=== PATIENT | male | born 1970 | race Caucasian/White ===

== ENCOUNTER 2016-08-05 14:40 | Emergency (ER) | payer OTHER ==
[~2016-08-05] VITALS: Ht 172.7 cm; Wt 88.0 kg
[2016-08-05 14:42] VITALS: BP 130/65; PULSE 90; RESP 18; TEMP 98.9; O2SAT 100
[2016-08-05] MEDS ORDERED: MONT10TA4 PO (14:58)
[2016-08-05] MEDS ORDERED: PARO40TA2 PO (14:58)
[2016-08-05] MEDS ORDERED: PARO30TA2 PO (14:58)
[2016-08-05] MEDS ORDERED: XOPEAER4 INH (14:58)
[2016-08-05] MEDS ORDERED: LEVO.075 PO (14:59)
[2016-08-05] MEDS ORDERED: ATOR40TA16 PO (14:59)
--- NOTE | 2016-08-05 15:01 | PD ---
HPI Chief Complaint: Psychiatric Symptoms Time Seen by Provider: 14:59 Travel History International Travel<30 days: No Contact w/Intl Traveler<30days: No Traveled to known affect area: No History of Present Illness HPI Patient comes in requesting psychiatric evaluation for worsening depression. Patient states he just got out of a correctional [place] on the 14th of last month has been having worsening of depression. Patient reports he's been taking his Paxil however still continues to feel his depression is getting worse. Patient denies any suicidal or homicidal ideations. Denies any medical concerns. Denies any chest pain, shortness of breath, nausea or vomiting, abdominal pain, or fevers. PFSH Past Medical History Bipolar Disorder: Yes Depression: Yes Triglycerides - High: Yes Past Surgical History Surgical History: No Previous Surgery Social History Alcohol Use: Yes (4 beers daliy ) Tobacco Use: Yes (1/2 pack a day ) Substance Use: Yes (TONIA ) Allergies-Medications (Allergen,Severity, Reaction): Coded Allergies: No Known Allergies (Unverified , 08/05/16) Reported Meds & Prescriptions Reported Meds & Active Scripts Active Reported Atorvastatin (Atorvastatin Calcium) 40 Mg Tab 40 Mg PO HS Synthroid (Levothyroxine Sodium) 75 Mcg Tab 75 Mcg PO DAILY Montelukast (Montelukast Sodium) 10 Mg Tab 10 Mg PO HS Paroxetine (Paroxetine HCl) 30 Mg Tab 30 Mg PO DAILY Paroxetine (Paroxetine HCl) 40 Mg Tab 40 Mg PO DAILY Xopenex Hfa 15 GM Inh (Levalbuterol 15 GM Inh) 45 Mcg/Act Aer 45 Mcg INH BID Shake well before using. (1 puff = 45 mcg) Review of Systems Except as stated in HPI: all other systems reviewed are Neg Physical Exam Narrative GENERAL: Well-developed, overly nourished, in no acute distress, and non-ill appearing. SKIN: Focused skin assessment warm and dry. HEAD: Atraumatic. Normocephalic. EYES: Pupils equal and round. EOMI. No scleral icterus. No injection or drainage. ENT: No nasal bleeding or discharge. Mucous membranes pink and moist. NECK: Trachea midline. Supple. No nuclear rigidity. CARDIOVASCULAR: Regular rate and rhythm. No murmur appreciated. RESPIRATORY: No accessory muscle use. No respiratory distress. Clear to auscultation. Breath sounds equal bilaterally. MUSCULOSKELETAL: No obvious deformities. No clubbing. No cyanosis. No edema. Full range of motion. NEUROLOGICAL: Awake and alert. No obvious cranial nerve deficits. Motor grossly within normal limits. Normal speech. PSYCHIATRIC: Appropriate mood and affect; insight and judgment normal. Data Data Last Documented VS Vital Signs Date Time Temp Pulse Resp B/P Pulse Ox O2 Delivery O2 Flow Rate FiO2 08/05/16 14:50 18 08/05/16 14:42 98.9 90 130/65 100 Room Air Orders Complete Blood Count With Diff (08/05/16 14:59) Comprehensive Metabolic Panel (08/05/16 14:59) Psych Screen (08/05/16 14:59) Drug Screen, Random Urine (08/05/16 14:59) Alcohol (Ethanol) (08/05/16 14:59) Salicylates (Aspirin) (08/05/16 14:59) Tylenol (Acetaminophen) (08/05/16 14:59) Labs Laboratory Tests Test 08/05/16 08/05/16 15:00 15:20 Urine Opiates Screen NEG Urine Barbiturates Screen NEG Urine Amphetamines Screen NEG Urine Benzodiazepines Screen NEG Urine Cocaine Screen POS Urine Cannabinoids Screen NEG White Blood Count 7.4 TH/MM3 Red Blood Count 4.92 MIL/MM3 Hemoglobin 15.4 GM/DL Hematocrit 45.0 % Mean Corpuscular Volume 91.4 FL Mean Corpuscular Hemoglobin 31.3 PG Mean Corpuscular Hemoglobin 34.2 % Concent Red Cell Distribution Width 14.8 % Platelet Count 202 TH/MM3 Mean Platelet Volume 8.9 FL Neutrophils (%) (Auto) 74.3 % Lymphocytes (%) (Auto) 14.7 % Monocytes (%) (Auto) 8.0 % Eosinophils (%) (Auto) 2.4 % Basophils (%) (Auto) 0.6 % Neutrophils # (Auto) 5.5 TH/MM3 Lymphocytes # (Auto) 1.1 TH/MM3 Monocytes # (Auto) 0.6 TH/MM3 Eosinophils # (Auto) 0.2 TH/MM3 Basophils # (Auto) 0.0 TH/MM3 CBC Comment DIFF FINAL Differential Comment Sodium Level 139 MEQ/L Potassium Level 3.9 MEQ/L Chloride Level 107 MEQ/L Carbon Dioxide Level 26.9 MEQ/L Anion Gap 5 MEQ/L Blood Urea Nitrogen 7 MG/DL Creatinine 0.93 MG/DL Estimat Glomerular Filtration 87 ML/MIN Rate Random Glucose 136 MG/DL Calcium Level 9.4 MG/DL Total Bilirubin 0.6 MG/DL Aspartate Amino Transf 17 U/L (AST/SGOT) Alanine Aminotransferase 25 U/L (ALT/SGPT) Alkaline Phosphatase 116 U/L Total Protein 7.3 GM/DL Albumin 3.7 GM/DL Salicylates Level 4.8 MG/DL Acetaminophen Level LESS THAN 2.0 MCG/ML Ethyl Alcohol Level LESS THAN 3 MG/DL MDM Medical Decision Making Medical Screen Exam Complete: Yes Emergency Medical Condition: Yes Differential Diagnosis Depression, suicidal, homicidal, alcohol intoxication, other Narrative Course Patient was seen and examined. Labs were obtained and reviewed. Patient medically cleared for further treatment and evaluation by psych. Final disposition per psych. Diagnosis Primary Impression: Depression Qualified Code: F32.9 - Depression, unspecified depression type Condition: Stable Good Trevino August 05, 2016 15:01
[2016-08-05 15:31] LABS: AUTOMATED NEUTROPHIL # 5.5 TH/MM3 (1.8-7.7); BASOPHIL % 0.6 % (0.0-2.0); EOSINOPHIL # 0.2 TH/MM3 (0-0.4); EOSINOPHIL % 2.4 % (0.0-4.0); HEMO FLAGS DIFF FINAL; LYMPH % 14.7 % (9.0-44.0); LYMPHOCYTE # 1.1 TH/MM3 (1.0-4.8); MEAN CELL VOLUME 91.4 FL (80.0-100.0); MEAN CORPUSCULAR HEMOGLOBIN 31.3 PG (27.0-34.0); MEAN CORPUSCULAR HGB CONC 34.2 % (32.0-36.0); NEUT % 74.3 % (16.0-70.0); PLATELET COUNT 202 TH/MM3 (150-450); RED BLOOD COUNT 4.92 MIL/MM3 (4.50-5.90); RED CELL DISTRIBUTION WIDTH 14.8 % (11.6-17.2); WHITE BLOOD COUNT 7.4 TH/MM3 (4.0-11.0)
[2016-08-05 15:50] LABS: BARBITURATES, URINE NEG (NEG); COCAINE, URINE POS (NEG)
[2016-08-05 15:53] LABS: AMPHETAMINE, URINE NEG (NEG)
[2016-08-05 15:57] LABS: ALT (GPT) 25 U/L (12-78); ANION GAP 5 MEQ/L (5-15); AST (GOT) 17 U/L (15-37); BICARBONATE 26.9 MEQ/L (21.0-32.0); BLOOD UREA NITROGEN 7 MG/DL (7-18); CHLORIDE 107 MEQ/L (98-107); GLOMERULAR FILTRATION RATE 87 ML/MIN (>89); POTASSIUM 3.9 MEQ/L (3.5-5.1); SODIUM (NA) 139 MEQ/L (136-145)
[2016-08-05 15:59] LABS: ACETAMINOPHEN LESS THAN 2.0 MCG/ML (10.0-30.0); ALKALINE PHOSPHATASE 116 U/L (45-117); TOTAL BILIRUBIN ADULT 0.6 MG/DL (0.2-1.0)
[2016-08-06 03:00] VITALS: BP 138/68; PULSE 82; RESP 18; O2SAT 100
[2016-08-06 07:48] VITALS: BP 131/70; PULSE 57; RESP 16; TEMP 98.5; O2SAT 95
--- NOTE | 2016-08-06 08:18 | PD ---
History of Present Illness Chief Complaint: Psychiatric Symptoms Time Seen by Provider: 08:10 Travel History International Travel<30 Days: No Contact w/Intl Traveler<30days: No Known affected area: No Legal Status Legal Status: Voluntary History of Present Illness: History of Present Illness HPI Patient is a 45 year old male with a reported history of depression who comes in requesting psychiatric evaluation for worsening symptoms of depression. ED documentation is reviewed and included here in this report; " Patient states he just got out of a correctional [place] on the 14th of last month has been having worsening of depression. Patient reports he's been taking his Paxil however still continues to feel his depression is getting worse. Patient denies any suicidal or homicidal ideations." Seen. Record reviewed. No previous [facility] admissions. Current toxicology report is positive for cocaine. Alert, oriented, engaging, calm and cooperative male who is maintaining basic hygiene. he is observed on his telephone when I arrived. Speech is clear and logical, goal directed. There is no pressure of speech. There is no dexter or hypomania. He does not present any psychosis and does not endorse any delusions or paranoid thoughts. He reports that he was released from [facility] weeks ago and since that time he has felt " stressed". " I feel like I was in a cocoon and now I'm having a hard time. I can't get up on time for work since I am not used to getting up early. I need to get my medication straightened out as well ". He does not voice any suicidal or homicidal ideation, intent or plan. He is looking for additional resources at this time. PFSH Past Medical History Bipolar Disorder: Yes Depression: Yes Triglycerides - High: Yes Past Surgical History Surgical History: No Previous Surgery Psychiatric History Psychiatric History Hx Psychiatric [place]: [place] Has been receiving antidepressants while incarcerated for the past 3 years. History of Inpatient Treatment: Yes ([facility] ) Guns or firearms in home: No Social History Single male, never , no children. Currently homeless. Born and raised in [place]. Completed third grade in special classes. Hx Alcohol Use: Yes (4 beers daliy ) Hx Tobacco Use: Yes (1/2 pack a day ) Hx Substance Use: Yes (TONIA ) Substance Use Type: Cocaine Hx of Substance Use Treatment: No Family Psychiatric History Brother w ? psych dx Allergies-Medications (Allergen,Severity, Reaction): Coded Allergies: No Known Allergies (Unverified , 08/05/16) Reported Meds & Prescriptions Reported Meds & Active Scripts Active Reported Atorvastatin (Atorvastatin Calcium) 40 Mg Tab 40 Mg PO HS Synthroid (Levothyroxine Sodium) 75 Mcg Tab 75 Mcg PO DAILY Montelukast (Montelukast Sodium) 10 Mg Tab 10 Mg PO HS Paroxetine (Paroxetine HCl) 30 Mg Tab 30 Mg PO DAILY Paroxetine (Paroxetine HCl) 40 Mg Tab 40 Mg PO DAILY Xopenex Hfa 15 GM Inh (Levalbuterol 15 GM Inh) 45 Mcg/Act Aer 45 Mcg INH BID Shake well before using. (1 puff = 45 mcg) Review of Systems Except as stated in HPI: all other systems reviewed are Neg Psychiatric: COMPLAINS OF: Depression Exam Alert: Yes [place]: Person (ox4) Mood: Calm Affect: Appropriate Speech: Clear, Logical Eye Contact: Normal Memory Intact: Comment (Not impaired. ) Hallucinations: Other (negative) Delusions: No Suicidal: Ideation (Negative) Homicidal: Ideation (Negative) Insight/Judgement Fair. Not impaired. MDM Medical Decision Making Medical Record Reviewed: Yes Assessment/Plan 45 year old male with a reported hx of depression who presents on a voluntary basis requesting evaluation for increase in symptoms of depression. Patient is currently taking Paxil .Positive toxicology for cocaine. I have advised him regarding concomitant use of medication and substances. Strogly urged abstinence. he will be provided with [facility] resource packet. Cleared from psychiatry for psychiatry. Orders Complete Blood Count With Diff (08/05/16 14:59) Comprehensive Metabolic Panel (08/05/16 14:59) Psych Screen (08/05/16 14:59) Drug Screen, Random Urine (08/05/16 14:59) Alcohol (Ethanol) (08/05/16 14:59) Salicylates (Aspirin) (08/05/16 14:59) Tylenol (Acetaminophen) (08/05/16 14:59) Diet Regular Basic (08/06/16 Breakfast) Results Vital Signs Date Time Temp Pulse Resp B/P Pulse Ox O2 Delivery O2 Flow Rate FiO2 08/06/16 07:48 98.5 57 16 131/70 95 Room Air 08/06/16 03:00 82 18 138/68 100 Room Air 08/05/16 14:50 18 08/05/16 14:42 98.9 90 18 130/65 100 Room Air Laboratory Tests Test 08/05/16 08/05/16 15:00 15:20 Urine Opiates Screen NEG Urine Barbiturates Screen NEG Urine Amphetamines Screen NEG Urine Benzodiazepines Screen NEG Urine Cocaine Screen POS Urine Cannabinoids Screen NEG White Blood Count 7.4 Red Blood Count 4.92 Hemoglobin 15.4 Hematocrit 45.0 Mean Corpuscular Volume 91.4 Mean Corpuscular Hemoglobin 31.3 Mean Corpuscular Hemoglobin 34.2 Concent Red Cell Distribution Width 14.8 Platelet Count 202 Mean Platelet Volume 8.9 Neutrophils (%) (Auto) 74.3 Lymphocytes (%) (Auto) 14.7 Monocytes (%) (Auto) 8.0 Eosinophils (%) (Auto) 2.4 Basophils (%) (Auto) 0.6 Neutrophils # (Auto) 5.5 Lymphocytes # (Auto) 1.1 Monocytes # (Auto) 0.6 Eosinophils # (Auto) 0.2 Basophils # (Auto) 0.0 CBC Comment DIFF FINAL Differential Comment Sodium Level 139 Potassium Level 3.9 Chloride Level 107 Carbon Dioxide Level 26.9 Anion Gap 5 Blood Urea Nitrogen 7 Creatinine 0.93 Estimat Glomerular Filtration 87 Rate Random Glucose 136 Calcium Level 9.4 Total Bilirubin 0.6 Aspartate Amino Transf 17 (AST/SGOT) Alanine Aminotransferase 25 (ALT/SGPT) Alkaline Phosphatase 116 Total Protein 7.3 Albumin 3.7 Salicylates Level 4.8 Acetaminophen Level LESS THAN 2.0 Ethyl Alcohol Level LESS THAN 3 Diagnosis Primary Impression: Adjustment disorder Additional Impression: Cocaine abuse Psychiatrically Cleared: Yes Med/ Other Pt Specific Info: No Change to Meds Disposition: 01 DISCHARGE HOME Condition: Stable Problem Qualifiers Primary Impression: Adjustment disorder Qualified Code: F43.21 - Adjustment disorder with depressed mood Suzie Arciniega August 06, 2016 08:18
== END 2016-08-06 09:10 | disposition home or self-care (01) ==
LOC: NEPD 14:40
DX: F32.9 Major depressive disorder, single episode, unspecified (principal); F43.21 Adjustment disorder with depressed mood; F14.10 Cocaine abuse, uncomplicated; F17.210 Nicotine dependence, cigarettes, uncomplicated; F12.90 Cannabis use, unspecified, uncomplicated
CPT/HCPCS: 80053; 80307; 85025; 99283

== ENCOUNTER → 2016-09-30 | Outpatient (CLI) | payer OTHER ==
[~2016-09-30] MED LIST: ATOR40TA16 PO; LEVO.075 PO; MONT10TA4 PO; PARO40TA2 PO; PRIL20TA2 PO; RANI150T PO; XOPEAER4 INH
[2016-09-30 08:29] LABS: AUTOMATED NEUTROPHIL # 6.9 TH/MM3 (1.8-7.7); BASOPHIL # 0.1 TH/MM3 (0-0.2); EOSINOPHIL # 0.2 TH/MM3 (0-0.4); EOSINOPHIL % 2.2 % (0.0-4.0); HEMATOCRIT 50.1 % (39.0-51.0); HEMO FLAGS DIFF FINAL; LYMPH % 13.1 % (9.0-44.0); LYMPHOCYTE # 1.2 TH/MM3 (1.0-4.8); MEAN CORPUSCULAR HEMOGLOBIN 31.2 PG (27.0-34.0); MEAN CORPUSCULAR HGB CONC 32.8 % (32.0-36.0); MONO % 9.8 % (0.0-8.0); NEUT % 73.9 % (16.0-70.0); PLATELET COUNT 204 TH/MM3 (150-450); RED BLOOD COUNT 5.28 MIL/MM3 (4.50-5.90); RED CELL DISTRIBUTION WIDTH 14.6 % (11.6-17.2); WHITE BLOOD COUNT 9.3 TH/MM3 (4.0-11.0)
[2016-09-30 08:52] LABS: ALT (GPT) 17 U/L (12-78)
[2016-09-30 08:54] LABS: ANION GAP 7 MEQ/L (5-15); AST (GOT) 19 U/L (15-37); BICARBONATE 24.8 MEQ/L (21.0-32.0); BLOOD UREA NITROGEN 4 MG/DL (7-18); CHLORIDE 107 MEQ/L (98-107); GLOMERULAR FILTRATION RATE 98 ML/MIN (>89); GLUCOSE,FASTING 97 MG/DL (74-99); POTASSIUM 4.3 MEQ/L (3.5-5.1); SODIUM (NA) 139 MEQ/L (136-145)
[2016-09-30 09:04] LABS: ALKALINE PHOSPHATASE 71 U/L (45-117); HDL CHOLESTEROL 40.9 MG/DL (40.0-60.0); LDL CHOLESTEROL 141 MG/DL (0-99); TOTAL BILIRUBIN ADULT 0.3 MG/DL (0.2-1.0)
== END ==
LOC: CLAB 07:56
PROVIDERS: ATTEND Family Medicine
DX: E03.9 Hypothyroidism, unspecified (principal); F43.20 Adjustment disorder, unspecified; F14.10 Cocaine abuse, uncomplicated; F32.9 Major depressive disorder, single episode, unspecified; E78.5 Hyperlipidemia, unspecified
CPT/HCPCS: 36415; 80053; 80061; 84443; 85025

== ENCOUNTER 2016-12-24 22:34 | Emergency (ER) | payer OTHER ==
[~2016-12-24] VITALS: Ht 172.7 cm; Wt 84.0 kg
[~2016-12-24 22:34] MED LIST changes: +CETI10 PO; +DEPA500T3 PO; +MIRT30TA PO
[2016-12-24 22:36] VITALS: BP 163/84; PULSE 89; RESP 16; TEMP 98.4; O2SAT 98
[2016-12-24] MEDS ORDERED: KETOROLAC TROMETHAMINE 60 MG/2 ML (IM) VIAL IM ONE (23:00)
[2016-12-24] MEDS ORDERED: DEXAMETHASONE SOD PHOS 20 MG/5 ML VIAL IM ONE (23:00)
[2016-12-24] MEDS ORDERED: ORPHENADRINE INJ 60 MG/2 ML AMP IM ONE (23:00)
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
[2016-12-25] MEDS ORDERED: IBUP800T23 PO (00:03)
[2016-12-25] MEDS ORDERED: CYCL1TAB29 PO (00:03)
== END 2016-12-25 00:26 | disposition home or self-care (01) ==
LOC: NEPD 22:34
DX: S16.1XXA Strain of muscle, fascia and tendon at neck level, initial encounter (principal); S39.012A Strain of muscle, fascia and tendon of lower back, initial encounter; V49.49XA Driver injured in collision with other motor vehicles in traffic accident, initial encounter
CPT/HCPCS: 96372; 99284; J1100; J1885; J2360